=== PATIENT | female | born 1950 | race Caucasian/White ===

== ENCOUNTER 2023-01-22 21:14 | Inpatient (IN) | payer MEDICARE, OTHER ==
[~2023-01-22] VITALS: Ht 154.9 cm; Wt 66.7 kg
--- NOTE | 2023-01-22 21:49 | NUR ---
Patient [facility]ra from [facility] took too much melatonin, altered per staff. On room air, breathing evenly and unlabored. Kept comfortable, will continue to monitor accordingly.
[2023-01-22 23:18] LABS: BASOPHILS % (AUTO) 0.6 % (0.0-2.0); EOSINOPHILS % (AUTO) 0.5 % (0.0-6.0); HEMATOCRIT 37 % (33-45); HEMOGLOBIN 11.6 g/dL (11.5-14.8); LYMPHOCYTES # (AUTO) 1.4 K/uL (0.8-4.8); LYMPHOCYTES % (AUTO) 23.2 % (20.0-44.0); MEAN CORPUSCULAR HGB CONC 32 g/dl (31.0-36.0); MEAN CORPUSCULAR VOLUME 96 fL (82-100); MONOCYTES # (AUTO) 0.2 K/uL (0.1-1.30); MONOCYTES % (AUTO) 2.8 % (2.0-12.0); NEUTROPHILS # (AUTO) 4.4 K/uL (1.8-8.9); NEUTROPHILS % (AUTO) 72.9 % (43.0-81.0); PLATELET COUNT (AUTO) 236 K/uL (150-450); RED BLOOD CELL COUNT(AUTO) 3.81 MIL/uL (4.0-5.2)
[2023-01-22 23:39] LABS: ACETAMINOPHEN < 10 ug/ml (10-30); ALANINE AMINOTRANSFERASE 27 U/L (12-78); ALBUMIN 4.2 g/dL (3.4-5.0); ALCOHOL, BLOOD 325 mg/dL (0-0); ALKALINE PHOSPHATASE 99 U/L (46-116); ASPARTATE AMINOTRANSFERASE 29 U/L (15-37); BILIRUBIN,DIRECT 0.2 mg/dL (0.0-0.2); BILIRUBIN,TOTAL 0.5 mg/dL (0.2-1.0); CALCIUM, SERUM 8.5 mg/dL (8.5-10.1); CARBON DIOXIDE 20 mmol/L (21-32); CHLORIDE 104 mmol/L (98-107); CREATININE 2.5 mg/dL (0.6-1.3); GLUCOSE 133 mg/dL (74-106); POTASSIUM 3.8 mmol/L (3.5-5.1); SODIUM SERUM 138 mmol/L (136-145); TOTAL PROTEIN, SERUM 7.1 g/dL (6.4-8.2); UREA NITROGEN, BLOOD 43 mg/dL (7-18)
--- NOTE | 2023-01-23 00:09 | NUR ---
covid swab collected and sent to lab
[2023-01-23 09:28] LABS: BILIRUBIN,URINE NEGATIVE (NEGATIVE); COLOR,URINE YELLOW (YELLOW); LEUKOCYTE ESTERASE ,URINE NEGATIVE (NEGATIVE); NITRITE, URINE NEGATIVE (NEGATIVE); PH,URINE 5.5 (5.0-8.0); PROTEIN,URINE NEGATIVE (NEGATIVE); UGLUCOSE NEGATIVE (NEGATIVE); UROBILINOGEN,URINE 0.2 EU/dL (0.2)
--- NOTE | 2023-01-23 10:12 | NUR ---
patient on the phone with sister "Jayson"
--- NOTE | 2023-01-23 10:31 | NUR ---
REPORT GIVEN TO CAMRON FABIAN FOR CONTINUITY OF CARE.
[2023-01-23] MEDS ORDERED: FOLI0.8T23 PO (11:44)
[2023-01-23] MEDS ORDERED: CYCL5TAB PO (11:44)
[2023-01-23] MEDS ORDERED: DONE10TA44 PO (11:44)
[2023-01-23] MEDS ORDERED: BUDE10.22 IH (11:44)
[2023-01-23] MEDS ORDERED: METO25TA20 PO (11:44)
[2023-01-23] MEDS ORDERED: BISA10SU11 RC (11:44)
[2023-01-23] MEDS ORDERED: AMLO-212 PO (11:44)
[2023-01-23] MEDS ORDERED: PANT20TA2 PO (11:44)
[2023-01-23] MEDS ORDERED: MONT10TA22 PO (11:44)
[2023-01-23] MEDS ORDERED: INSU100V11 SQ (11:44)
[2023-01-23] MEDS ORDERED: FERR325T23 PO (11:44)
[2023-01-23] MEDS ORDERED: MAGN400O6 PO (11:44)
[2023-01-23] MEDS ORDERED: HYDR-4076 PO (11:44)
[2023-01-23] MEDS ORDERED: ATOR10TA PO (11:44)
[2023-01-23] MEDS ORDERED: ONDA4TAB5 PO (11:44)
[2023-01-23] MEDS ORDERED: ASCO-352 PO (11:44)
[2023-01-23] MEDS ORDERED: MEMA10TA PO (11:44)
[2023-01-23] MEDS ORDERED: ALLO100T PO (11:44)
[2023-01-23] MEDS ORDERED: SITA50TA PO (11:44)
[2023-01-23] MEDS ORDERED: ACET-868 PO (11:47)
[2023-01-23] MEDS ORDERED: MAG HYDROX/AL HYDROX/SIMETH 30 ML UDC PO PRN (12:30)
[2023-01-23] MEDS ORDERED: TEMAZEPAM 7.5 MG CAPSULE PO PRN (12:30)
[2023-01-23] MEDS ORDERED: BLOOD SUGAR DIAGNOSTIC 1 EACH STRIP IN ONE (12:30)
[2023-01-23] MEDS ORDERED: MAGNESIUM HYDROXIDE 30 ML UDC PO PRN (12:30)
--- NOTE | 2023-01-23 12:30 | NUR ---
NURSE NOTE: PT VERY ANXIOUS AT THIS TIME. DR RODRIGUEZ ORDERED ATIVAN DOSE TO BE GIVEN NOW. ATIVAN PO ADMINISTERED ORDERED. PT AGNIESZKA WELL. WILL CONT TO MONITOR.
--- NOTE | 2023-01-23 12:30 | NUR ---
NURSE NOTE: PT IS A 72 YEAR OLD FEMALE ADMITTED FROM THE ER PLACED ON A 5150 FOR GD. PER HOLD PT TOLD CLINICIAN "SHE DOES NOT KNOW WHY SHE IS LIKE THIS AND WANTS HELP". PT WAS FOUND CONFUSED AND DROWSY. PT IS ALERT/ORT X2-3, WELL GROOMED, CLEAR SPEECH, PT DENIES SI/HI AT THIS TIME. PT IS HIGHLY ANXIOUS AND GUARDED, FLAT AFFECT. PT STATED THAT SHE IS DEPRESSED, BUT MOSTLY ANXIOUS. DR RODRIGUEZ AWARE OF ADMISSION AND IN TO SEE PT. DR TRAMMELL NOTIFIED OF ADMISSION. PTS HANDBOOK GIVEN. SKIN INTACT. PT IN STABLE COND AT THIS TIME. WILL CONT TO MONITOR PT FOR SAFETY AND BEHAVIOR PER [employer].
[2023-01-23] MEDS: LORAZEPAM 1 MG TABLET PO PRN ×2 (12:36→18:07)
--- NOTE | 2023-01-23 13:30 | NUR ---
NURSE NOTE: PT CALM AT THIS TIME. ATIVAN EFFECTIVE AT THIS TIME. WILL CONT TO MONITOR.
[2023-01-23 16:00] VITALS: BP 160/77
--- NOTE | 2023-01-23 16:24 | NUR ---
NURSE NOTE: ATTEMPTED TO TAKE PROZAC FROM [facility], BUT IT WAS NOT AVAILABLE. CALLED PHARMACY AND EXPLAINED THE ISSUE, BUT THE PHARMACIST TOLD ME THAT SHE DOESN'T HAVE TIME TO DEAL WITH IT RIGHT NOW. WILL ATTEMPT TO CALL AGAIN LATER.
--- NOTE | 2023-01-23 17:30 | NUR ---
NURSE NOTE: DR TRAMMELL INFORMED OF NEW ADMISSION. DR TRAMMELL INFORMED US THAT HE IS BEING COVERED BY DR DICKERSON. DR DICKERSON THEN INFORMED OF THE NEW ADMISSION. DR DICKERSON STATED THAT HE WILL SEE THE PT TOMORROW. WILL ENDORSE TO PM SHIFT.
[2023-01-23] MEDS: Fluoxetine 10 mg capsule PO SCH (17:34)
--- NOTE | 2023-01-23 18:08 | NUR ---
NURSE NOTE: PT VERY ANXIOUS AT THIS TIME. ATIVAN PO ADMINISTERED ORDERED. PT AGNIESZKA WELL. WILL CONT TO MONITOR.
--- NOTE | 2023-01-23 18:40 | NUR ---
NURSE NOTE: PT GIVEN TYL AT THIS TIME. PT AGNIESZKA WELL WILL CONT TO MONITOR.
[2023-01-23] MEDS: ACETAMINOPHEN 325 MG TABLET PO PRN (18:44)
--- NOTE | 2023-01-23 19:00 | NUR ---
NURSE NOTE: PT STILL FEELING ANXIOUS AT THIS TIME. ATIVAN NOT EFFECTIVE AT THIS TIME. WILL ENDORSE TO PM SHIFT.
--- NOTE | 2023-01-23 19:30 | NUR ---
RN OPENING NOTES RECEIVED PATIENT AWAKE IN BED. NO PAIN NOTED. NO SOB NOTED. NOTED WITH SOME ANXIETY. PREVIOUS SHIFT GIVEN ATIVAN AND TYLENOL. WILL CONTINUE TO MONITOR AND WILL GIVE ATIVAN WHEN THE TIME IS DUE. OFFERED WATER AND SNACKS. PATIENT REQUESTING FOR VANILLA PUDDING. ALL NEEDS ATTENDED. ALL SAFETY MEASURES IN PLACE. BED LOCKED IN THE LOWEST POSITION. TABLE IN EASY REACH. SIDE RAILS UP TIMES 2. WILL CONTINUE TO MONITOR CLOSELY.
[2023-01-23 20:25] VITALS: BP 140/77
[2023-01-24 07:14] LABS: CHOLESTEROL 130 mg/dL (<200); HDL CHOLESTEROL 77 mg/dL (40-60); LDL 45 mg/dL (0-99); TRIGLYCERIDES 100 mg/dL (30-150)
[2023-01-24 07:19] LABS: ALANINE AMINOTRANSFERASE 21 U/L (12-78); ALBUMIN 3.4 g/dL (3.4-5.0); ALKALINE PHOSPHATASE 85 U/L (46-116); ASPARTATE AMINOTRANSFERASE 24 U/L (15-37); BILIRUBIN,TOTAL 0.9 mg/dL (0.2-1.0); CALCIUM, SERUM 8.8 mg/dL (8.5-10.1); CARBON DIOXIDE 26 mmol/L (21-32); CHLORIDE 108 mmol/L (98-107); GLUCOSE 108 mg/dL (74-106); POTASSIUM 4.4 mmol/L (3.5-5.1); SODIUM SERUM 142 mmol/L (136-145); UREA NITROGEN, BLOOD 37 mg/dL (7-18)
[2023-01-24 08:00] VITALS: BP 149/79
[2023-01-24] MEDS: Fluoxetine 10 mg capsule PO SCH (08:22)
--- NOTE | 2023-01-24 09:22 | NUR ---
PADILLA Clinical Note: Pt placed on a 5150 hold for GD. Pt has been anxious at her facility and has been crying. Patient currently resides at [facility] located at [address] [place] [address]; ([phone]). PADILLA spoke with Barbra anna marie, who stated that pt is on bedhold but after is still welcomed back. PADILLA will contact pt's daughter Yesy ([phone]) to discuss treatment/discharge plan.
--- NOTE | 2023-01-24 09:22 | NUR ---
PADILLA Initial Discharge Note: Patient currently resides at [facility] located at [address] [place] [address]; ([phone]). PADILLA spoke with Barbra thrasher, who stated that pt is on bedhold but after is still welcomed back. PADILLA will contact pt's daughter Yesy ([phone]) to discuss treatment/discharge plan. PADILLA will work with the pt, family, and treatment team to help coordinate appropriate discharge.
--- NOTE | 2023-01-24 09:23 | NUR ---
Treatment Plan: Pt refused to sign treatment plan and was suspicious.
[2023-01-24] MEDS: LORAZEPAM 1 MG TABLET PO PRN ×2 (09:37→13:46)
--- NOTE | 2023-01-24 09:37 | NUR ---
NURSE NOTE: PT VERY ANXIOUS AT THIS TIME. SHAKING. REQUESTED ATIVAN. ATIVAN PO ADMINISTERED ORDERED. PT AGNIESZKA WELL. WILL CONT TO MONITOR.
--- NOTE | 2023-01-24 10:37 | NUR ---
NURSE NOTE: PT STILL A LITTLE ANXIOUS, ATIVAN SL EFFECTIVE AT THIS TIME. WILL CONT TO MONITOR.
--- NOTE | 2023-01-24 11:46 | NUR ---
Social Work Note/Substance Abuse Intervention: Patient was provided with a brief substance abuse intervention and referred to [facility] ([phone]), [facility] ([phone]), and [facility] ([phone]) for drinking alcohol.
--- NOTE | 2023-01-24 13:03 | NUR ---
PADILLA Family Contact: SW attempted to contact pt's person to notify Yesy daughter ([phone]) and the call did not go through.
--- NOTE | 2023-01-24 13:45 | NUR ---
NURSE NOTE: PT VERY ANXIOUS AT THIS TIME. REQUESTED ATIVAN. ATIVAN PO ADMINISTERED ORDERED. PT AGNIESZKA WELL. WILL CONT TO MONITOR.
[2023-01-24] MEDS: ACETAMINOPHEN 325 MG TABLET PO PRN (13:57)
--- NOTE | 2023-01-24 14:00 | NUR ---
NURSE NOTE: PT REQUESTED TYL AT THIS TIME. TYL PO ADMINISTERED ORDERED. PT AGNIESZKA WELL. WILL CONT TO MONITOR.
[2023-01-24] MEDS ORDERED: LORAZEPAM 1 MG TABLET PO STA ×2 (14:35→18:42)
--- NOTE | 2023-01-24 14:45 | NUR ---
NURSE NOTE: PT STILL VERY ANXIOUS AT THIS TIME. DR RODRIGUEZ NOTIFIED. ORDERED ONE TIME DOSE OF ATIVAN. ATIVAN PO ADMINISTERED ORDERED. PT AGNIESZKA WELL. WILL CONT TO MONITOR.
--- NOTE | 2023-01-24 15:45 | NUR ---
NURSE NOTE: ANXIETY DECREASED A LITTLE. ATIVAN SL EFFECTIVE AT THIS TIME. WILL CONT TO MONITOR.
--- NOTE | 2023-01-24 15:59 | NUR ---
SW Family Contact: SW attempted to contact pt's sister Jayson ([phone]) and left a voicemail.
[2023-01-24 16:00] VITALS: BP 137/86
[2023-01-24] MEDS ORDERED: ONDANSETRON HCL 4 MG/5 ML SOLUTION PO PRN (16:00)
[2023-01-24] MEDS ORDERED: MAGNESIUM HYDROXIDE 30 ML UDC PO PRN (16:00)
[2023-01-24] MEDS ORDERED: MONTELUKAST SODIUM (10MG) 10 MG TABLET PO SCH (16:00)
[2023-01-24] MEDS ORDERED: DONEPEZIL 5 MG TABLET PO SCH (16:00)
[2023-01-24] MEDS ORDERED: ATORVASTATIN 10 MG TABLET PO SCH (16:00)
[2023-01-24] MEDS ORDERED: CYCLOBENZAPRINE 10 MG TABLET PO PRN (16:00)
[2023-01-24] MEDS ORDERED: BISACODYL SUPP (10 MG) 10 MG/SUPP.RECT SUPP.RECT RC PRN (16:00)
[2023-01-24] MEDS ORDERED: INSULIN ASPART/LISPRO 100 UNIT/ML CARTRIDGE SQ PRN (17:30)
[2023-01-24] MEDS ORDERED: INSULIN ASPART/LISPRO 100 UNIT/ML CARTRIDGE SQ SCH (17:30)
[2023-01-24] MEDS: MEMANTINE HCL 5 MG TABLET PO SCH (17:52)
[2023-01-24] MEDS: hydrALAZINE HCL 25 MG TABLET PO SCH (17:53)
--- NOTE | 2023-01-24 18:24 | NUR ---
NURSE NOTE: PT BLEEDING FROM HEMORRHOID AT THIS TIME. CALLED DR DICKERSON TO INFORM, WAITING FOR CALL BACK. WILL ENDORSE TO PM SHIFT.
--- NOTE | 2023-01-24 18:54 | NUR ---
NURSE NOTE: PT CONTINUES TO BE VERY ANXIOUS AT THIS TIME. REQUESTED ATIVAN. ATIVAN PO ONCE ADMINISTERED ORDERED. PT AGNIESZKA WELL. WILL CONT TO MONITOR.
[2023-01-24 19:46] VITALS: BP 126/65
[2023-01-24] MEDS: ATORVASTATIN 10 MG TABLET PO SCH (21:21)
[2023-01-24] MEDS: METOPROLOL TARTRATE 25 MG TABLET PO SCH (21:21)
[2023-01-24] MEDS: MONTELUKAST SODIUM (10MG) 10 MG TABLET PO SCH (21:22)
[2023-01-24] MEDS: DONEPEZIL 5 MG TABLET PO SCH (21:22)
--- NOTE | 2023-01-24 22:22 | NUR ---
RN NOTE PATIENT BLOOD GLUCOSE WAS 136MG/DL WITH NO COVERAGE AT THIS TIME.
[2023-01-25] MEDS: LORAZEPAM 1 MG TABLET PO PRN ×2 (05:23→12:27)
[2023-01-25 06:36] LABS: BASOPHILS % (AUTO) 0.8 % (0.0-2.0); EOSINOPHILS % (AUTO) 2.1 % (0.0-6.0); HEMATOCRIT 33 % (33-45); HEMOGLOBIN 10.9 g/dL (11.5-14.8); LYMPHOCYTES # (AUTO) 1.9 K/uL (0.8-4.8); LYMPHOCYTES % (AUTO) 39.6 % (20.0-44.0); MEAN CORPUSCULAR HGB CONC 33 g/dl (31.0-36.0); MEAN CORPUSCULAR VOLUME 94 fL (82-100); MONOCYTES # (AUTO) 0.5 K/uL (0.1-1.30); MONOCYTES % (AUTO) 10.5 % (2.0-12.0); NEUTROPHILS # (AUTO) 2.3 K/uL (1.8-8.9); PLATELET COUNT (AUTO) 218 K/uL (150-450); RED BLOOD CELL COUNT(AUTO) 3.51 MIL/uL (4.0-5.2); WHITE BLOOD COUNT (AUTO) 4.9 K/uL (4.3-11.0)
[2023-01-25 06:56] LABS: CALCIUM, SERUM 8.9 mg/dL (8.5-10.1); CARBON DIOXIDE 23 mmol/L (21-32); CHLORIDE 109 mmol/L (98-107); GLUCOSE 110 mg/dL (74-106); MAGNESIUM 1.9 mg/dL (1.8-2.4); PHOSPHORUS 4.2 mg/dL (2.5-4.9); POTASSIUM 3.7 mmol/L (3.5-5.1); SODIUM SERUM 143 mmol/L (136-145); UREA NITROGEN, BLOOD 32 mg/dL (7-18)
[2023-01-25] MEDS: PANTOPRAZOLE 40 MG TABLET.DR PO SCH (07:31)
[2023-01-25 08:00] VITALS: BP 149/65
[2023-01-25] MEDS ORDERED: DEXTROSE 50%-WATER 50 ML DISP.SYRIN IV PRN (08:00)
[2023-01-25] MEDS: ALLOPURINOL 100 MG TABLET PO SCH (08:41)
[2023-01-25] MEDS: AMLODIPINE BESYLATE 5 MG TABLET PO SCH (08:42)
[2023-01-25] MEDS: FERROUS SULFATE (325 MG) 325 MG/TAB TABLET PO SCH (08:42)
[2023-01-25] MEDS: LINAGLIPTIN 5 MG TABLET PO SCH (08:43)
[2023-01-25] MEDS: FOLIC ACID 1 MG TABLET PO SCH (08:43)
[2023-01-25] MEDS: hydrALAZINE HCL 25 MG TABLET PO SCH ×3 (08:43→17:21)
[2023-01-25] MEDS: MEMANTINE HCL 5 MG TABLET PO SCH ×2 (08:44→17:20)
[2023-01-25] MEDS: ASCORBIC ACID 500 MG TABLET PO SCH (08:44)
[2023-01-25] MEDS: METOPROLOL TARTRATE 25 MG TABLET PO SCH ×2 (08:45→21:12)
[2023-01-25] MEDS ORDERED: Fluoxetine 10 mg capsule PO SCH (09:00)
--- NOTE | 2023-01-25 09:01 | NUR ---
PADILLA Family Contact: PADILLA contacted pt's sister Jayson ([phone]) who stated that she is the DPOA and would want pt back to [facility] when stable.
[2023-01-25] MEDS: BLOOD SUGAR DIAGNOSTIC 1 EACH STRIP IN SCH ×3 (12:23→21:14)
[2023-01-25] MEDS: INSULIN REGULAR, HUMAN 100 UNIT/ML 3 ML VIAL SQ PRN ×2 (12:38→21:49)
--- NOTE | 2023-01-25 12:38 | NUR ---
RN-NOTES ATIVAN GIVEN DUE TO INCREASED ANXIETY AND PATIENT STATING, "I FEEL REALLY ANXIOUS, CAN I HAVE SOMETHING FOR IT PLEASE?"
[2023-01-25 16:00] VITALS: BP 159/81
[2023-01-25] MEDS ORDERED: HYDROCORTISONE CR 30 GM TUBE RC PRN (18:00)
[2023-01-25] MEDS ORDERED: HYDROCORTISONE 2.5% CREAM 28.4 GM TUBE TP PRN ×2 (19:00)
[2023-01-25 20:05] VITALS: BP 149/70
[2023-01-25] MEDS: ATORVASTATIN 10 MG TABLET PO SCH (21:13)
[2023-01-25] MEDS: MONTELUKAST SODIUM (10MG) 10 MG TABLET PO SCH (21:13)
[2023-01-25] MEDS: DONEPEZIL 5 MG TABLET PO SCH (21:13)
[2023-01-26 07:02] LABS: BASOPHILS % (AUTO) 0.8 % (0.0-2.0); EOSINOPHILS % (AUTO) 2.6 % (0.0-6.0); HEMATOCRIT 31 % (33-45); HEMOGLOBIN 10.3 g/dL (11.5-14.8); LYMPHOCYTES % (AUTO) 36.8 % (20.0-44.0); MEAN CORPUSCULAR HGB CONC 34 g/dl (31.0-36.0); MEAN CORPUSCULAR VOLUME 94 fL (82-100); MONOCYTES # (AUTO) 0.5 K/uL (0.1-1.30); MONOCYTES % (AUTO) 9.4 % (2.0-12.0); NEUTROPHILS # (AUTO) 2.7 K/uL (1.8-8.9); NEUTROPHILS % (AUTO) 50.4 % (43.0-81.0); PLATELET COUNT (AUTO) 197 K/uL (150-450); RED BLOOD CELL COUNT(AUTO) 3.25 MIL/uL (4.0-5.2); WHITE BLOOD COUNT (AUTO) 5.3 K/uL (4.3-11.0)
[2023-01-26 07:28] LABS: IRON, SERUM 41 ug/dl (50-175); TOTAL IRON BINDING CAPACITY 199 ug/dl (250-450)
[2023-01-26 07:51] LABS: CALCIUM, SERUM 8.9 mg/dL (8.5-10.1); CARBON DIOXIDE 22 mmol/L (21-32); CHLORIDE 109 mmol/L (98-107); CREATININE 1.9 mg/dL (0.6-1.3); GLUCOSE 101 mg/dL (74-106); POTASSIUM 3.9 mmol/L (3.5-5.1); SODIUM SERUM 142 mmol/L (136-145); UREA NITROGEN, BLOOD 31 mg/dL (7-18)
[2023-01-26 08:00] VITALS: BP 147/75
[2023-01-26] MEDS: MEMANTINE HCL 5 MG TABLET PO SCH ×2 (08:01→16:49)
[2023-01-26] MEDS: ASCORBIC ACID 500 MG TABLET PO SCH (08:01)
[2023-01-26] MEDS: BLOOD SUGAR DIAGNOSTIC 1 EACH STRIP IN SCH ×4 (08:01→21:57)
[2023-01-26] MEDS: FOLIC ACID 1 MG TABLET PO SCH (08:02)
[2023-01-26] MEDS: PANTOPRAZOLE 40 MG TABLET.DR PO SCH (08:02)
[2023-01-26] MEDS: LINAGLIPTIN 5 MG TABLET PO SCH (08:02)
[2023-01-26] MEDS: FERROUS SULFATE (325 MG) 325 MG/TAB TABLET PO SCH (08:02)
[2023-01-26] MEDS: ALLOPURINOL 100 MG TABLET PO SCH (08:03)
[2023-01-26] MEDS: AMLODIPINE BESYLATE 5 MG TABLET PO SCH (08:04)
[2023-01-26] MEDS: hydrALAZINE HCL 25 MG TABLET PO SCH ×3 (08:05→16:49)
[2023-01-26] MEDS: METOPROLOL TARTRATE 25 MG TABLET PO SCH ×2 (08:06→21:28)
[2023-01-26] MEDS ORDERED: Fluoxetine 10 mg capsule PO SCH (09:00)
[2023-01-26 09:06] LABS: FERRITIN 159 ng/mL (8-388)
[2023-01-26] MEDS: LORAZEPAM 1 MG TABLET PO PRN (09:35)
--- NOTE | 2023-01-26 09:35 | NUR ---
NURSE NOTE: PT STATED THAT SHE IS VERY ANXIOUS, "I DON'T KNOW WHAT TO DO". REQUESTED ATIVAN AT THIS TIME. ATIVAN PO ADMINISTERED ORDERED. WILL CONT TO MONITOR.
--- NOTE | 2023-01-26 10:35 | NUR ---
NURSE NOTE: PT CALM AT THIS TIME. ATIVAN EFFECTIVE. WILL CONT TO MONITOR.
[2023-01-26 16:00] VITALS: BP 150/83
--- NOTE | 2023-01-26 19:05 | NUR ---
RN notes Received Pt from morning nurse. Pt is ambulating in the hallway with a steady gait. Pt is alert and orientedX2-3, calm, and cooperative. On room air. No SOB. No S/S of distress noted. Reality orientation provided. Safety precautions is maintained. Will continue to monitor Q 15 mins checks for safety and behavior.
[2023-01-26 20:55] VITALS: BP 152/77
[2023-01-26] MEDS: ATORVASTATIN 10 MG TABLET PO SCH (21:28)
[2023-01-26] MEDS: DONEPEZIL 5 MG TABLET PO SCH (21:28)
[2023-01-26] MEDS: MONTELUKAST SODIUM (10MG) 10 MG TABLET PO SCH (21:29)
[2023-01-26] MEDS: INSULIN REGULAR, HUMAN 100 UNIT/ML 3 ML VIAL SQ PRN (21:58)
[2023-01-27] MEDS: LORAZEPAM 1 MG TABLET PO PRN ×3 (03:44→17:08)
--- NOTE | 2023-01-27 03:44 | NUR ---
RN notes Pt is feeling anxious, restless and crying. Administered ativan as ordered. safety precautions is maintained. will continue to monitor.
[2023-01-27] MEDS: BLOOD SUGAR DIAGNOSTIC 1 EACH STRIP IN SCH ×4 (07:43→21:57)
[2023-01-27 08:00] VITALS: BP 136/68
[2023-01-27] MEDS: LINAGLIPTIN 5 MG TABLET PO SCH (08:16)
[2023-01-27] MEDS: FOLIC ACID 1 MG TABLET PO SCH (08:16)
[2023-01-27] MEDS: PANTOPRAZOLE 40 MG TABLET.DR PO SCH (08:16)
[2023-01-27] MEDS: MEMANTINE HCL 5 MG TABLET PO SCH ×2 (08:16→17:08)
[2023-01-27] MEDS: ASCORBIC ACID 500 MG TABLET PO SCH (08:16)
[2023-01-27] MEDS: FERROUS SULFATE (325 MG) 325 MG/TAB TABLET PO SCH (08:16)
[2023-01-27] MEDS: ALLOPURINOL 100 MG TABLET PO SCH (08:16)
[2023-01-27] MEDS: AMLODIPINE BESYLATE 5 MG TABLET PO SCH (08:17)
[2023-01-27] MEDS: hydrALAZINE HCL 25 MG TABLET PO SCH ×3 (08:17→17:08)
[2023-01-27] MEDS: METOPROLOL TARTRATE 25 MG TABLET PO SCH ×2 (08:17→21:18)
[2023-01-27] MEDS: FLUOXETINE HCL 20 MG CAPSULE PO SCH (08:18)
--- NOTE | 2023-01-27 09:12 | NUR ---
Court Notification: SW contacted pt's sister Jayson ([phone]) and notified of 5250 hearing.
--- NOTE | 2023-01-27 09:13 | NUR ---
Court Hearing: Patient's court hearing for 2060 was today and it was upheld for GD.
--- NOTE | 2023-01-27 10:30 | NUR ---
RN-NOTES PATIENT REQUESTING ATIVAN,STATED" I NEED FOR MY ANXIETY".ATIVAN 1MG P.O GIVEN PRN ORDER. WILL CONT. MONITORING FOR SAFETY AND BEHAVIOR.
--- NOTE | 2023-01-27 11:30 | NUR ---
RN-NOTES PATIENT PARTICIPATING IN THE ACTIVITY GROUP,CALM,NO ACUTE DISTRESS NOTED.
[2023-01-27] MEDS: INSULIN REGULAR, HUMAN 100 UNIT/ML 3 ML VIAL SQ PRN (12:24)
[2023-01-27 16:00] VITALS: BP 150/76
--- NOTE | 2023-01-27 17:10 | NUR ---
RN-NOTES PATIENT REQUESTING ATIVAN,STATED" I NEED FOR MY ANXIETY".ATIVAN 1MG P.O GIVEN PRN ORDER. WILL CONT. MONITORING FOR SAFETY AND BEHAVIOR.
--- NOTE | 2023-01-27 18:10 | NUR ---
RN-NOTES PATIENT IS VISIBLE IN THE UNIT ,GUARDED,A/O X3 AMBULATORY WITH WALKER.NO ACUTE DISTRESS NOTED. COMPLIANT WITH MEDICATIONS. PATIENT ABLE TO MAKE NEEDS KNOWN TPO THE STAFF.PATIENT PARTICIPATES WITH THE GROUP.AMBULATORY STEADY GAIT.ALL NEEDS ATTENDED AND ANTICIPATED. WILL CONT. MONITORING FOR SAFETY AND BEHAVIOR.WILL ENDORSE TO THE INCOMING NURSE FOR THE CONTINUITY OF CARE.
--- NOTE | 2023-01-27 19:30 | NUR ---
GPS RN OPENING NOTE RECEIVED PATIENT LYING IN BED AT THIS TIME. A/O X3 AND ABLE TO MAKE NEEDS KNOWN. NO ACUTE DISTRESS NOTED AT THIS TIME. ALL NEEDS ATTENDED ANTICIPATED AT THIS TIME. WILL CONTINUE TO MONITOR FOR SAFETY AND BEHAVIOR.
[2023-01-27 20:50] VITALS: BP 145/68
[2023-01-27] MEDS: DONEPEZIL 5 MG TABLET PO SCH (21:17)
[2023-01-27] MEDS: ATORVASTATIN 10 MG TABLET PO SCH (21:17)
[2023-01-27] MEDS: MONTELUKAST SODIUM (10MG) 10 MG TABLET PO SCH (21:18)
[2023-01-28 06:43] LABS: BASOPHILS % (AUTO) 0.5 % (0.0-2.0); EOSINOPHILS % (AUTO) 2.7 % (0.0-6.0); HEMATOCRIT 34 % (33-45); HEMOGLOBIN 11.1 g/dL (11.5-14.8); LYMPHOCYTES # (AUTO) 1.8 K/uL (0.8-4.8); LYMPHOCYTES % (AUTO) 30.9 % (20.0-44.0); MEAN CORPUSCULAR HGB CONC 33 g/dl (31.0-36.0); MEAN CORPUSCULAR VOLUME 94 fL (82-100); MONOCYTES # (AUTO) 0.5 K/uL (0.1-1.30); MONOCYTES % (AUTO) 8.4 % (2.0-12.0); NEUTROPHILS # (AUTO) 3.3 K/uL (1.8-8.9); NEUTROPHILS % (AUTO) 57.5 % (43.0-81.0); PLATELET COUNT (AUTO) 217 K/uL (150-450); RED BLOOD CELL COUNT(AUTO) 3.55 MIL/uL (4.0-5.2); WHITE BLOOD COUNT (AUTO) 5.7 K/uL (4.3-11.0)
[2023-01-28 07:03] LABS: CALCIUM, SERUM 9.2 mg/dL (8.5-10.1); CARBON DIOXIDE 25 mmol/L (21-32); CHLORIDE 109 mmol/L (98-107); CREATININE 1.9 mg/dL (0.6-1.3); GLUCOSE 123 mg/dL (74-106); PHOSPHORUS 4.4 mg/dL (2.5-4.9); POTASSIUM 4.2 mmol/L (3.5-5.1); SODIUM SERUM 144 mmol/L (136-145); UREA NITROGEN, BLOOD 31 mg/dL (7-18)
[2023-01-28 08:00] VITALS: BP 144/74
--- NOTE | 2023-01-28 08:03 | NUR ---
PADILLA Discharge Note: Patient will discharge back to [facility] located at [address] [place] [id number]; ([phone]). Please arrange ambulance at 1PM. PADILLA contacted pts sister Jayson ([phone]) and notified of discharge. Admissions Barbra ([phone]) stated pt is welcomed back. Upon discharge, the pt appears to be in a dysphoric mood and presented with a congruent affect. Pt appears to be alert and oriented x2 (place, self). Pt denies both suicidal and homicidal ideation as well as auditory and visual hallucinations. Pt appears to be ambulatory with a steady gait. Pt will be under the care of [facility] Super[facility], Dr. Johnson located at [facility] [place] [address]; ([phone]). The choice of vendor form and multidisciplinary exit care form were done, printed, signed, and given to the patient.
--- NOTE | 2023-01-28 09:05 | NUR ---
Dr. Vazquez gave an order to D/C hold and D/C to [facility] and to continue same meds including prn.
[2023-01-28] MEDS: PANTOPRAZOLE 40 MG TABLET.DR PO SCH (09:08)
[2023-01-28] MEDS: FERROUS SULFATE (325 MG) 325 MG/TAB TABLET PO SCH (09:08)
[2023-01-28] MEDS: FOLIC ACID 1 MG TABLET PO SCH (09:09)
[2023-01-28] MEDS: FLUOXETINE HCL 20 MG CAPSULE PO SCH (09:09)
[2023-01-28] MEDS: ASCORBIC ACID 500 MG TABLET PO SCH (09:09)
[2023-01-28] MEDS: LINAGLIPTIN 5 MG TABLET PO SCH (09:09)
[2023-01-28] MEDS: ALLOPURINOL 100 MG TABLET PO SCH (09:09)
[2023-01-28] MEDS: MEMANTINE HCL 5 MG TABLET PO SCH (09:09)
[2023-01-28] MEDS: METOPROLOL TARTRATE 25 MG TABLET PO SCH (09:10)
[2023-01-28] MEDS: AMLODIPINE BESYLATE 5 MG TABLET PO SCH (09:10)
[2023-01-28] MEDS: BLOOD SUGAR DIAGNOSTIC 1 EACH STRIP IN SCH ×2 (09:11→12:00)
[2023-01-28] MEDS: hydrALAZINE HCL 25 MG TABLET PO SCH ×2 (09:12→12:33)
[2023-01-28 10:00] VITALS: BP 144/74
[2023-01-28 12:33] VITALS: BP 136/68
--- NOTE | 2023-01-28 13:25 | NUR ---
GPS/RN PT LEFT TO [facility] VIA AMBULANCE.VSS. PT IS AMBULATORY NO SI/HI AT THE TIME OF D/C. PROPERTY RETURNED. REPORT GIVEN TO ELIANE FABIAN AT THE FACILITY
== END 2023-01-28 13:20 | DRG 885 ==
LOC: ER 21:31 → GPS 01-23 11:35
PROVIDERS: ADMIT Psychiatry & Neurology Psychosomatic Medicine; ATTEND Internal Medicine Nephrology
DX: F33.1 Major depressive disorder, recurrent, moderate (principal); N17.9 Acute kidney failure, unspecified; N18.9 Chronic kidney disease, unspecified; I10 Essential (primary) hypertension; F10.90 Alcohol use, unspecified, uncomplicated; Y90.9 Presence of alcohol in blood, level not specified; F41.9 Anxiety disorder, unspecified; Y90.8 Blood alcohol level of 240 mg/100 ml or more; E86.9 Volume depletion, unspecified; I12.9 Hypertensive chronic kidney disease with stage 1 through stage 4 chronic kidney disease, or unspecified chronic kidney disease; E11.22 Type 2 diabetes mellitus with diabetic chronic kidney disease; R41.9 Unspecified symptoms and signs involving cognitive functions and awareness
CPT/HCPCS: 36415; 80048-TC; 80053-TC; 80061-TC; 80076-TC; 82607-TC; 82728-TC; 82962-TC; 83540-TC; 83735-TC; 84100-TC; 85025-TC; 87081-TC; C9803; G0480; J1815; Q0162